=== PATIENT | female | born 1945 | race Caucasian/White ===

== ENCOUNTER 2016-09-23 01:43 | Inpatient (IN) | payer OTHER ==
[~2016-09-23] VITALS: Ht 162.6 cm; Wt 48.1 kg
[2016-09-23] MEDS ORDERED: ONDANSETRON 4 MG INJ IV STA (01:52)
[2016-09-23] MEDS ORDERED: morphine 2 MG INJ IV STA (01:52)
[2016-09-23] MEDS ORDERED: SOD CHLORIDE 0.9% 1,000 ML IV STA (01:52)
[2016-09-23] MEDS ORDERED: ALBUTEROL 0.083% (NEB) 2.5 MG/3 ML AMP HHN STA ×2 (01:53→07:03)
[2016-09-23] MEDS ORDERED: IPRATROPIUM (NEB) 0.5 MG/2.5 ML AMP HHN ONE (02:00)
[2016-09-23 02:11] LABS: ADD SCAN DIFF NO
[2016-09-23 02:13] LABS: BASOPHIL # 0.1 10^3/ul (0.0-0.1); BASOPHILS % 0.4 % (0.0-2.0); EOSINOPHILS # 0.1 10^3/ul (0.0-0.5); EOSINOPHILS % 0.4 % (0.0-7.0); HEMATOCRIT 39.2 % (37.0-47.0); HEMOGLOBIN 13.8 g/dl (12.0-16.0); LYMPHOCYTES % 12.5 % (15.0-51.0); MEAN CORPUSCULAR HEMOGLOBIN 32.3 pg (29.0-33.0); MEAN CORPUSCULAR HGB CONC 35.2 g/dl (32.0-37.0); MEAN CORPUSCULAR VOLUME 91.8 fl (82.0-101.0); MEAN PLATELET VOLUME 9.8 fl (7.4-10.4); MONOCYTE # 1.2 10^3/ul (0.3-0.9); MONOCYTES % 7.3 % (0.0-11.0); NEUTROPHIL # 12.6 10^3/ul (1.6-7.5); PLATELET COUNT 493 10^3/UL (140-415); RED BLOOD COUNT 4.27 10^6/ul (4.20-5.40); RED CELL DISTRIBUTION WIDTH 11.7 % (11.5-14.5); WHITE BLOOD COUNT 15.9 10^3/ul (4.8-10.8)
[2016-09-23 02:40] LABS: ALBUMIN/GLOBULIN RATIO 1.92; BILIRUBIN,INDIRECT 0.6 mg/dl (0-1.1); BILIRUBIN,TOTAL 0.6 mg/dl (0.2-1.3); CALCIUM 9.3 mg/dl (8.4-10.2); CREATININE 0.49 mg/dl (0.44-1.00); POTASSIUM 4.8 mmol/L (3.5-5.1); TOTAL PROTEIN 7.6 g/dl (6.1-8.1)
[2016-09-23 02:41] LABS: INR 0.89; PT RATIO 0.9
[2016-09-23 02:53] LABS: TROPONIN-I 0.744 ng/ml (0.00-0.12)
[2016-09-23] MEDS ORDERED: HEPARIN 25000 UNITS/250 ML 250 ML IV STA (03:21)
[2016-09-23] MEDS ORDERED: HEPARIN 1000 UNITS/ML 10 ML INJ IV STA (03:21)
[2016-09-23] MEDS ORDERED: CEFEPIME 1GM/50 ML (PMX) 50 ML IVPB ONE (03:30)
[2016-09-23] MEDS: LORAZEPAM 2 MG INJ IV ONE ×2 (03:53→05:20)
[2016-09-23] MEDS: ASPIRIN 81 MG TAB PO ONE ×2 (04:00→04:10)
--- NOTE | 2016-09-23 04:08 | ERA ---
ER Documentation Chief Complaint Date/Time DATE: 09/23/16 TIME: 03:58 Chief Complaint midepigastric pain radiates to back, sob, ?stemi by medics HPI 71-year-old female comes in respiratory distress on oxygen with paramedics. She was also complaining of epigastric abdominal pain that began earlier in the day. The pain does radiate to her back. She denies chest pain. She denies fever and chills. She states that she feels very jittery. Refuses to answer some questions. ROS All systems reviewed and are negative except as per history of present illness. Allergies Allergies: Coded Allergies: Penicillins (Verified Allergy, Unknown, 09/23/16) PMhx/Soc Medical and Surgical Hx: pt denies Surgical Hx History of Surgery: No Anesthesia Reaction: No Hx Neurological Disorder: Yes (anxiety) Hx Respiratory Disorders: Yes (copd, asthma) Hx Cardiac Disorders: Yes (htn) Hx Psychiatric Problems: No Hx Miscellaneous Medical Probl: Yes (thyroid) Hx Alcohol Use: No Hx Substance Use: No Smoking Status: Former smoker Physical Exam Vitals Vital Signs Date Time Temp Pulse Resp B/P Pulse Ox O2 Delivery O2 Flow Rate FiO2 09/23/16 05:50 101 18 132/73 100 BIPAP 09/23/16 05:30 118 24 115/91 100 BIPAP 09/23/16 05:15 100 BIPAP 09/23/16 05:00 131 24 143/119 86 Nasal Cannula 2.0 09/23/16 04:00 121 26 142/127 90 Nasal Cannula 2.0 09/23/16 03:30 123 20 141/84 100 BIPAP 09/23/16 02:27 114 17 125/97 100 BIPAP 09/23/16 02:07 97.8 111 21 161/100 99 09/23/16 01:50 112 100 70 Physical Exam Const: [] Moderate to severe respiratory distress. Appears very and, Head: Atraumatic Eyes: Normal Conjunctiva, EOMI, PRL ENT: Normal External Ears, Nose and Mouth. Neck: Full range of motion..~ No meningismus. Resp: Very mild bilateral anterior wheezing, tachypnea, accessory muscle use Cardio: Regular tachycardia, no murmurs Abd: Soft, mild to moderate epigastric tenderness without guarding or rebound , non distended. Normal bowel sounds Skin: No petechiae or rashes Back: No midline or flank tenderness Ext: No cyanosis, or edema Neur: Awake and alert and oriented 3, cranial nerves II through XII intact, no cerebellar deficits Psych: Appears anxious. Result Diagram: 09/23/16 0150 09/23/16 0150 Results 24 hrs Laboratory Tests Test 09/23/16 01:50 09/23/16 03:56 09/23/16 05:19 White Blood Count 15.910^3/ul Red Blood Count 4.2710^6/ul Hemoglobin 13.8g/dl Hematocrit 39.2% Mean Corpuscular Volume 91.8fl Mean Corpuscular Hemoglobin 32.3pg Mean Corpuscular Hemoglobin Concent 35.2g/dl Red Cell Distribution Width 11.7% Platelet Count 58525^3/UL Mean Platelet Volume 9.8fl Neutrophils % 79.0% Lymphocytes % 12.5% Monocytes % 7.3% Eosinophils % 0.4% Basophils % 0.4% Nucleated Red Blood Cells % 0.0/100WBC Neutrophils # 12.610^3/ul Lymphocytes # 2.010^3/ul Monocytes # 1.210^3/ul Eosinophils # 0.110^3/ul Basophils # 0.110^3/ul Nucleated Red Blood Cells # 0.010^3/ul Prothrombin Time 12.0Sec Prothrombin Time Ratio 0.9 INR International Normalized Ratio 0.89 Activated Partial Thromboplast Time 32.0Sec Sodium Level 117mmol/L Potassium Level 4.8mmol/L Chloride Level 86mmol/L Carbon Dioxide Level 22mmol/L Anion Gap 14 Blood Urea Nitrogen 9mg/dl Creatinine 0.49mg/dl Glucose Level 138mg/dl Lactic Acid Level 1.7mmol/L Calcium Level 9.3mg/dl Total Bilirubin 0.6mg/dl Direct Bilirubin 0.00mg/dl Indirect Bilirubin 0.6mg/dl Aspartate Amino Transf (AST/SGOT) 36IU/L Alanine Aminotransferase (ALT/SGPT) 32IU/L Alkaline Phosphatase 77IU/L Troponin I 0.744ng/ml B-Type Natriuretic Peptide 2460PG/ML Total Protein 7.6g/dl Albumin 5.0g/dl Globulin 2.60g/dl Albumin/Globulin Ratio 1.92 Lipase 36U/L Urine Color YELLOW Urine Clarity CLEAR Urine pH 6.0 Urine Specific [place] 1.013 Urine Ketones 2+mg/dL Urine Nitrite NEGATIVEmg/dL Urine Bilirubin NEGATIVEmg/dL Urine Urobilinogen NEGATIVEmg/dL Urine Leukocyte Esterase NEGATIVELeu/ul Urine Hemoglobin NEGATIVEmg/dL Urine Glucose NEGATIVEmg/dL Urine Total Protein NEGATIVEmg/dl Blood Gas Specimen Source Blood arterial Arterial Blood Date Drawn 09/23/2016 5:46:43 AM Arterial Blood pH (Temp corrected) 7.183 Arterial Blood pCO2 (Temp correct) 51.6mmhg Arterial Blood pO2 (Temp corrected) 214.7mmHG Arterial Blood HCO3 19.0mmol/L Arterial Blood Base Excess -9.6mmol/L Arterial Blood Oxygen Saturation 99.1mmHG Lencho Test ACCEPTAB Arterial Blood Gas Puncture Site Right Radial Arterial Blood Carboxyhemoglobin 0.1% Arterial Blood Methemoglobin 0.4% Blood Gas A-a O2 Differential 228.9mmHg Oxyhemoglobin Percent 98.6% Total Hemoglobin 14.5g/dl Blood Gas Temperature 37.0C Blood Gas Respiration Rate 14.0 Blood Gas Actual Respiration Rate 33 Blood Gas Modality MASK - BIPAP FiO2 70.0% Blood Gas IPAP/EPAP Ratio 16/5 Blood Gas Critical Value Read Back Maddie ATKINS Blood Gas Notified Whom BL Blood Gas Notified Time 09/23/2016 5:59:35 AM Current Medications Medications (Trade) Dose Ordered Sig/Florecita Route PRN Reason Start Time Stop Time Status Last Admin Dose Admin Sodium Chloride (NS) 1,000 ml @ 1,000 mls/hr Q1H STAT IV 09/23/16 01:52 09/23/16 02:51 DC 09/23/16 02:14 Morphine Sulfate (morphine) 2 mg ONCE STAT IV 09/23/16 01:52 09/23/16 01:53 DC Ondansetron HCl (Zofran Inj) 4 mg ONCE STAT IV 09/23/16 01:52 09/23/16 01:53 DC Albuterol (Proventil 0.083% (Neb)) 5 mg ONCE STAT HHN 09/23/16 01:53 09/23/16 01:55 DC 09/23/16 02:16 Ipratropium [place] (Atrovent 0.02% (Neb)) 0.5 mg ONCE ONCE HHN 09/23/16 02:00 09/23/16 02:01 DC 09/23/16 02:16 Lorazepam (Ativan) 1 mg ONCE ONCE IV 09/23/16 03:00 09/23/16 03:01 DC 09/23/16 03:53 Aspirin (Aspirin) 324 mg ONCE ONCE PO 09/23/16 03:30 09/23/16 03:31 DC Heparin Sodium (Porcine) 4000 unit 4,000 unit ONCE STAT IV 09/23/16 03:21 09/23/16 03:27 DC 09/23/16 04:56 Heparin Sodium (Porcine) 250 ml @ 0 mls/hr ONCE STAT IV 09/23/16 03:21 09/23/16 03:27 DC 09/23/16 04:59 Cefepime HCl 50 ml @ 100 mls/hr ONCE ONCE IVPB 09/23/16 03:30 09/23/16 03:59 DC 09/23/16 04:00 Sodium Chloride (NS) 500 ml @ 500 mls/hr Q1H ONCE IV 09/23/16 04:30 09/23/16 05:29 DC 09/23/16 04:12 IV Flush 10 ml 10 ml STK-MED ONCE .ROUTE 09/23/16 04:10 09/23/16 04:11 DC 09/23/16 04:40 Sodium Chloride 100 ml @ ud STK-MED ONCE .ROUTE 09/23/16 04:10 09/23/16 04:11 DC 09/23/16 04:40 Iohexol (Omnipaque) 100 ml @ ud STK-MED ONCE .ROUTE 09/23/16 04:10 09/23/16 04:11 DC 09/23/16 04:40 Levalbuterol (Xopenex Neb) 2.5 mg ONCE ONCE HHN 09/23/16 05:30 09/23/16 05:31 DC Procedures/MDM Respiratory distress and severe hyponatremia. Patient presented in respiratory distress. She was placed on a BiPAP but she only agreed to use during a breathing treatment. This did improve her condition. She remained persistently tachycardic and a CT injury was ordered to rule out PE. Patient was also given normal saline. Because of tachycardia and white count she was also treated with cefepime for potential sepsis. Given a total of 1.5 L of normal saline. I spoke with Mau Bolivar who agreed to accept the patient in transfer. Troponin was elevated at 0.74 and I started her on heparin and give her heparin bolus. She refused aspirin.. Morphine was ordered for pain but she refused it. EKG interpretation #1, sinus tachycardia rate of 125, normal axis, no ST or T- wave changes concerning for acute ischemia, normal intervals. Sinus tachycardia correctional therapy teacher interpretation: Persistent sinus tachycardia EKG #2 interpretation: Sinus tachycardia rate of 130, normal axis, no ST or T- wave changes concerning for acute ischemia, normal axis CT abdomen pelvis interpretation: I see no acute process, no obstruction, no abnormal fat stranding, no free air, no fractures CT chest interpretation: No pulmonary embolus or aortic dissection, emphysematous changes, I see no pneumothorax or acute fractures. Compression fractures of spine to persist Critical care time 44 minutes: This includes treatment of respiratory distress with noninvasive positive pressure ventilation, early antibiotic administration for possible sepsis, heparinization of patient with elevated troponin, careful hydration of patient with severe hyponatremia, chart review, multiple visits the patient's bedside to reassess status, discussion with patient and admitting doctor. This does not include any billable procedures. Departure Diagnosis: Primary Impression: SIRS (systemic inflammatory response syndrome) Additional Impressions: Respiratory distress COPD (chronic obstructive pulmonary disease) Hyponatremia Metabolic acidosis Respiratory acidosis Non-STEMI (non-ST elevated myocardial infarction) Condition: Serious PARAG MARTE DO Sep 23, 2016 04:08
[2016-09-23] MEDS ORDERED: IOHEXOL 100 ML ONE (04:10)
[2016-09-23] MEDS ORDERED: SOD CHLORIDE 0.9% 100 ML ONE (04:10)
--- NOTE | 2016-09-23 04:27 | RADRPT ---
PROCEDURE: CT of the abdomen and pelvis without contrast CLINICAL INDICATION: Abdominal Pain. TECHNIQUE: Spiral CT images through the abdomen and pelvis without the use of contrast. The admin istered radiation dose is CTDI 4.40 and DLP 229.11. One or more of the following dose reduction neftali hniques were used: automated exposure control, adjustment of the mA and/or kV according to patient s ize, or use of iterative reconstruction technique. COMPARISON: None FINDINGS: Lack of oral and intravenous contrast somewhat limits evaluation. Marked emphysematous changes of the lung bases with hyperinflation.. The study is limited by breathing motion artifact. Small probable cyst of the left lobe of the live r is seen. Aortic and coronary artery calcification is seen. No gross abnormality of the spleen, k idneys, or pancreas. Mild bilateral adrenal hypertrophy.. Fat-containing left inguinal hernia.. T he appendix is not definitely identified. A tiny amount of free fluid is seen in the pelvis. The b ladder, uterus, and adnexal structures are unremarkable in appearance. No gross small bowel obstruc tion or free air. No gross diverticulitis. No adenopathy is seen. Injection granuloma in the left gluteal region. There is mild degenerative change of the spine. IMPRESSION: Limited study due to lack of oral or intravenous contrast and breathing motion artifact. Nonvisuali zation of the appendix. No gross small bowel obstruction or free air. If symptoms persist, repeat study with intravenous and oral contrast would be suggested. Trace pelvic free fluid.. RPTAT: HLBE Physician Carolyn Date Time Electronically viewed and signed by Physician Carolyn on 09/23/2016 04:26 JOSEPH/
[2016-09-23] MEDS ORDERED: SOD CHLORIDE 0.9% 500 ML IV ONE (04:30)
[2016-09-23 04:33] LABS: ADD UMIC NO; UR ASCORBIC ACID 40 mg/dL (NEGATIVE); UR BILIRUBIN (Dip) NEGATIVE (NEGATIVE); UR BLOOD (Dip) NEGATIVE (NEGATIVE); UR CLARITY CLEAR (CLEAR); UR COLOR YELLOW (YELLOW); UR GLUCOSE (Dip) NEGATIVE (NEGATIVE); UR KETONES (Dip) 2+ mg/dL (NEGATIVE); UR LEUKOCYTE ESTERASE (Dip) NEGATIVE Leu/ul (NEGATIVE); UR NITRITE (Dip) NEGATIVE (NEGATIVE); UR SPECIFIC GRAVITY (Dip) 1.013 (1.003-1.030); UR TOTAL PROTEIN (Dip) NEGATIVE (NEGATIVE); UR UROBILINOGEN (Dip) NEGATIVE (NEGATIVE)
[2016-09-23] MEDS ORDERED: LEVALBUTEROL (NEB) 1.25 MG/0.5 ML AMP HHN ONE (05:30)
[2016-09-23 05:59] LABS: AADO2 Arterial 228.9 mmHg (7.0-24.0); Allen Test ACCEPTAB; Arterial Base Excess -9.6 mmol/L (-3.0-3); Arterial COHb 0.1 % (0.0-3.0); Arterial Fraction of Oxyhgb 98.6 % (93.0-99.0); Arterial MetHb 0.4 % (0.0-1.5); Arterial Total Hemglobin 14.5 g/dl (12.0-18.0); Blood Gas IEPAP 16/5; MODE MASK - BIPAP
--- NOTE | 2016-09-23 06:21 | RADRPT ---
PROCEDURE: CTA CHEST WITH CONTRAST CLINICAL INDICATION: 71-year-old female with shortness of breath. TECHNIQUE: The study was performed utilizing a [employer] VCT 64-slice CT scanner. Direct axi al sections were obtained from the thoracic inlet through the chest to the upper abdomen with a bolu s injection of 90 cc of Isovue-300 nonionic contrast material. Sagittal, coronal and maximal intensi ty projections re-formations were obtained. One or more of the following dose reduction techniques w ere utilized: automated exposure control, adjustment of the mA and/or kV according to patient's size or use of iterative reconstruction technique. The images were reviewed on a PACS workstation. CTD/ vol = 59.3 mGy; Total Exam DLP = 155.6 mGy-cm. COMPARISON: CT abdomen/pelvis September 23, 2016 at 02:59 a.m. FINDINGS: The aorta is calcified but without aneurysmal dilatation or dissection. Coronary artery calcificatio ns are present. There are small lymph nodes seen within the mediastinum which are not pathologic by size criteria. The central pulmonary arteries are without evidence for filling defect to suggest pu lmonary embolus or thrombus. There is marked centrilobular emphysematous changes throughout the lung s. There is mild right basilar subsegmental atelectasis. There is minimal scarring within the left lung base. There is no definite evidence for consolidation. There is no evidence for a pneumothora x. Bilateral calcified breast implants are noted. Mild degenerative changes are present within the spine. There is an old compression fracture of the T7 vertebral body with approximately 30% loss of height. There is an old compression fracture the superior T9 vertebral body with approximately 20% loss of height. IMPRESSION: 1. No CTA evidence for thoracic aortic aneurysm/dissection or central pulmonary embolus. 2. Coronary artery calcifications. 3. Marked centrilobular emphysematous changes. 4. Mild right basilar subsegmental atelectasis. 5. Calcified breast implants. 6. Degenerative changes within the spine with old T7 (30%) and superior T9 (20% compression fractur es. .Arias Masters MD, MD Date Time Electronically viewed and signed by .Arias Masters MD, MD on 09/23/2016 06:20 .Kieran/
[2016-09-23 08:27] LABS: AADO2 Arterial 106.5 mmHg (7.0-24.0); Allen Test ACCEPTAB; Arterial Base Excess -8.5 mmol/L (-3.0-3); Arterial COHb 0.3 % (0.0-3.0); Arterial Fraction of Oxyhgb 97.5 % (93.0-99.0); Arterial HCO3 18.3 mmol/L (22.0-26.0); Arterial MetHb 0.3 % (0.0-1.5); Arterial Total Hemglobin 14.4 g/dl (12.0-18.0); Blood Gas IEPAP 16/5; Blood Gas PS 11; MODE MASK - BIPAP
[2016-09-23] MEDS ORDERED: ACETAMINOPHEN 325 MG TAB PO PRN ×2 (09:00→11:30)
[2016-09-23] MEDS ORDERED: ONDANSETRON 4 MG INJ IV PRN (09:00)
[2016-09-23] MEDS ORDERED: TIOT18CA INHALATION (11:22)
[2016-09-23] MEDS ORDERED: LISI10TA2 PO (11:23)
[2016-09-23] MEDS ORDERED: ALBU18HF INHALATION (11:23)
[2016-09-23] MEDS ORDERED: LORA-441 PO (11:24)
[2016-09-23] MEDS ORDERED: NACL 0.9% 3 ML SYG IV SCH (11:30)
[2016-09-23] MEDS ORDERED: morphine 2 MG INJ IV PRN (11:30)
[2016-09-23] MEDS ORDERED: HYDROCODONE/APAP (5/325) TAB PO PRN (11:30)
[2016-09-23] MEDS ORDERED: LEVALBUTEROL (NEB) 0.63 MG/3 ML AMP HHN PRN (12:00)
[2016-09-23] MEDS ORDERED: hydrALAzine 20 MG INJ IV PRN (12:00)
[2016-09-23] MEDS ORDERED: ASPIRIN (EC) 81 MG TAB PO SCH (12:00)
[2016-09-23] MEDS ORDERED: ENOXAPARIN 30 MG/0.3 ML SYG SC SCH (12:00)
[2016-09-23] MEDS ORDERED: SOD CHLORIDE 0.9% 1,000 ML IV SCH (12:30)
[2016-09-23 12:48] LABS: ALBUMIN 4.6 g/dl (3.3-4.9); ALBUMIN/GLOBULIN RATIO 2.09; BILIRUBIN,INDIRECT 0.3 mg/dl (0-1.1); BILIRUBIN,TOTAL 0.3 mg/dl (0.2-1.3); CALCIUM 8.4 mg/dl (8.4-10.2); CREATININE 0.54 mg/dl (0.44-1.00); POTASSIUM 4.7 mmol/L (3.5-5.1); TOTAL PROTEIN 6.8 g/dl (6.1-8.1)
[2016-09-23 12:56] LABS: CHOL/HDL RATIO 1.5 RATIO
[2016-09-23 13:01] LABS: CK-MB 13.3 ng/ml (0.0-2.4)
[2016-09-23 13:07] LABS: TROPONIN-I 0.742 ng/ml (0.00-0.12)
[2016-09-23 14:07] LABS: MAGNESIUM 1.6 mg/dl (1.7-2.5); PHOSPHORUS 3.7 mg/dl (2.5-4.9)
[2016-09-23] MEDS: LEVALBUTEROL (NEB) 0.63 MG/3 ML AMP HHN SCH (14:34)
--- NOTE | 2016-09-23 14:36 | HP ---
DATE OF ADMISSION: 09/23/2016 TIME OF EVALUATION: 12:30 p.m. REASON FOR ADMISSION: Dyspnea with epigastric pain radiating to the back. CONSULTANTS: 1. Dr. Roland Dhaliwal, Cardiology 2. Dr. Devon Mitchell, Nephrology 3. 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 The patient verbalized that she started having epigastric abdominal pain since 09/22/2016. The patient also had multiple episodes of nausea and dry heaves. The patient denied any vomiting. The patient also verbalized that she felt her abdomen was bloated. The patient also was having progressive worsening of dyspnea. The patient verbalized that that heat wave over the last week made her respiratory status worse. The patient does not use any home oxygen. The patient continues use her inhaled bronchodilators at home. The patient denied any cough, fevers, or chills. The patient denied any chest pain. The patient was complaining of dizziness and headache. The patient verbalized that she had similar symptoms when her sodium was low previously. When questioned further about why she has low sodium, she was unable to give an answer to it. The patient usually follows up with the physicians at [facility]. The patient denied any chest pain. The patient denied any diaphoresis. She denied any diarrhea. The patient denied any dysuria or hematuria. The patient denied any melena or hematochezia. The patient has not had any colonoscopy in the recent past. The patient denied any history of any malignancies. In the emergency room, the patient was noticed to have significant hyponatremia with a sodium of 117. The patient also had a troponin level of 0.744. The patient was noticed to have lactic acidosis with lactic acid as high as 2.7 in the emergency room. The patient also had a significant respiratory distress with CO2 retention. Consequently, the patient was maintained on BiPAP therapy with improvement in the patient's symptoms. The patient was noticed to have combined respiratory and metabolic acidosis. Status post BiPAP therapy, the patient had no more evidence of CO2 retention. The patient underwent a CT angiogram of the chest that was negative for any central pulmonary embolism or aortic aneurysm or dissection. The patient underwent a CT scan of the abdomen and pelvis that was a limited study because of lack of intravenous or oral contrast as well as breathing motion artifact. However, there was no gross bowel obstruction or free air. The patient's troponins were trending higher up. The patient was started on a heparin drip. The patient also received a single dose of IV cefepime along with oral aspirin. PAST MEDICAL HISTORY: COPD, anxiety, and hypertension. PAST SURGICAL HISTORY: Denies. HOME MEDICATIONS: 1. Ventolin HFA 2 puffs inhaled q.4 hours p.r.n. dyspnea. 2. Spiriva 18 mcg capsule 2 puffs inhalation daily. 3. Lisinopril 10 mg p.o. daily. 4. Ativan 0.5 mg p.o. at bedtime p.r.n. anxiety. ALLERGIES: NO KNOWN DRUG ALLERGIES. SOCIAL HISTORY: The patient lives at home with her son. The patient quit smoking approximately 12 years ago. The patient denied any use of illicit drugs or alcohol. REVIEW OF SYSTEMS: A 12-point review of systems was made and the review of systems was negative other than what is mentioned in history of present illness. PHYSICAL EXAMINATION: VITAL SIGNS: Temperature 98.1, pulse rate 99, respiratory rate 20, blood pressure 106/78, oxygen saturation 99% on low flow O2. GENERAL: This is a thin, frail-looking female lying in bed in mild to moderate respiratory distress with oxygen via nasal cannula on. HEENT: Head normocephalic and atraumatic. Eyes: Anicteric sclerae. Conjunctivae clear. ENT: Nasal septum is midline. Oral mucosa is dry. NECK: Supple. No JVD noticed. RESPIRATORY: Bilaterally diminished breath sounds. Poor air entry bilaterally. Use of accessory muscles for respiration. CARDIAC: Regular rate and rhythm. S1, S2 heard. GASTROINTESTINAL: Abdomen soft, scaphoid. Nontender. Bowel sounds hypoactive in all 4 quadrants. GENITOURINARY: Deferred. EXTREMITIES: No cyanosis, no clubbing, no edema. Peripheral pulses palpable. NEUROLOGIC: The patient is awake, alert, and oriented. Moves all 4 extremities. No focal neurologic deficits. LABORATORY AND DIAGNOSTIC DATA: WBC 15.9, hemoglobin 13.8, hematocrit 39.2, platelet count 493. Sodium 117, potassium 4.8, chloride 86, carbon dioxide 22, anion gap 14, BUN 9, creatinine 0.49, glucose 138, calcium 9.3. Troponin I 0.744. Urinalysis, urine ketones 2+, urine nitrate negative, leukocyte esterase negative, urine total protein negative. PT 12.0, INR 0.898, PTT 32.0. CT angiogram of the chest: No CT evidence for thoracic aortic aneurysm/ dissection or pulmonary embolism. Coronary artery calcifications. Markedly centrilobular emphysematous changes. Mild right bibasilar subsegmental atelectasis. Calcified breast implants. Degenerative changes within the spine , but old T7 and superior T9 compression fractures. CT scan of the abdomen and pelvis. Limited study due to lack of oral/ intravenous contrast and breathing motion artifact. Nonvisualization of the appendix. No gross small bowel obstruction or free air. If symptoms persist, repeat study with intravenous and oral contrast would be suggested. IMPRESSION: This is a 71-year-old female with a past medical history of essential hypertension, COPD, and anxiety disorder who came to the emergency room with multiple complaints who was found to have evidence of elevated troponins, hypochloremic acidosis, significant hyponatremia, and respiratory distress who will be admitted here for further treatment and evaluation. ASSESSMENT AND PLAN: 1. Acute on chronic respiratory failure, hypoxic and hypercapnic. The patient is status post BiPAP therapy. The patient will be continued on supplemental oxygen. The patient will be continued on inhaled bronchodilators. A pulmonology consult will be obtained. 2. Non-ST elevation myocardial infarction. Troponins are elevated. Etiology unclear. The patient will be ruled out for any underlying acute coronary syndrome. A cardiology consult will be obtained. A 2-D echocardiogram will be obtained to evaluate the left ventricular ejection fraction to evaluate for any wall motion abnormalities. 3. Hyponatremia. Etiology unclear. The patient denied any history of kidney disease. The patient did not have any recent surgical interventions. The patient denied any use of any diuretics. The patient's sodium will be corrected gradually. A nephrology consult will be obtained. Urine and serum osmolality and urine sodium level will be obtained. 4. Hypochloremic acidosis. Etiology unclear. The patient will be adequately hydrated. 5. Essential hypertension. The patient will be started on antihypertensives. 6. Anxiety disorder. The patient will be continued on p.r.n. benzodiazepines. Plan. The patient will be admitted to inpatient telemetry floor. The patient will be started on a clear liquid diet. The patient will be started on DVT prophylaxis. The patient is already on therapeutic anticoagulation for underlying NSTEMI. The patient will remain a FULL CODE. Activities will be with assist. The rest of the patient's management will be based on the clinical course, the results of diagnostic studies, and inputs from consultants. Based on the patient's clinical presentation, she most probably requires at least 2 midnights' stay for further management and evaluation of her clinical presentation. The case and management of this patient was fully discussed with Dr. Rodriguez. LIN RODRIGUEZ MD, AM/CAROLINE Conf#: [id number] DID#: [id number] MTDD
[2016-09-23 14:38] LABS: THYROID STIMULATING HORMONE 9.52 MIU/L (0.465-4.680)
[2016-09-23] MEDS ORDERED: LORAZEPAM 2 MG INJ IV STA (14:53)
[2016-09-23] MEDS ORDERED: LORAZEPAM 2 MG INJ ONE (15:02)
--- NOTE | 2016-09-23 15:48 | RADRPT ---
Echocardiogram Report Patient Name: JEFFRY CLAROS M Gender: Female Date: 1945 Study Date: 23-Sep-2016 Silk Screen Operator: DOROTEO Location: E Ref. Physician: LIN LINDSEY Quality: Adequate Procedures: Transthoracic echocardiogram examination. Indications: Check LV EF. 2D/M Mode Doppler Measurement Value Normal Range Measurement Value Normal Range LA Dimen 2D 2.9 2.3 - 4.0 cm AV Peak [place] 0.9 m/sec AV Peak PG 3.2 mmHg LVOT Peak [place] 0.6 m/sec MV E Peak [place] 0.8 m/sec MV A Peak [place] 0.5 m/sec MV E/A 1.7 MV Decel Time 115 msec MV Decel [place] 7 MV E/A 1.7 TR Peak [place] 3.4 m/sec TR Peak PG 46.4 mmHg PV Peak [place] 0.7 m/sec PV Peak PG 2.0 mmHg RVSP 49.4 mmHg Findings Left Ventricle: Normal left ventricular cavity size. Moderate left ventricular systolic dysfunction. There is a large area of LV apical akinesis. Tissue Doppler/Mitral Doppler indices are most probably consistent with pseudonormalization with mildly elevated left atrial pressure (Stage II diastolic dysfunction), patient could/would not Valsalva. Normal left ventricular wall thickness. The left ventricular ejection fraction is visually estimated at 35 - 40 %. Right Ventricle: Normal right ventricular size. The RV apex appears to be akinetic, best appreciated in the subcostal images. Left Atrium: The left atrium is normal in size and appearance. Right Atrium: The right atrium is normal in size and appearance. Atrial Septum: Normal atrial septum. Mitral Valve: Anterior mitral valve leaflet appear mildly thickened. Trace to mild mitral regurgitation. Aortic Valve: Normal appearance and function of the aortic valve. No hemodynamically significant aortic stenosis by Doppler. No aortic regurgitation. Tricuspid Valve: Normal appearance of the tricuspid valve. The estimated Peak RVSP is 49 mmHg. There is moderate tricuspid regurgitation. Pulmonic Valve: Normal pulmonic valve appearance and function with trivial (physiologic) regurgitation. No evidence of pulmonic regurgitation. Pericardium: Normal pericardium with no significant pericardial effusion. No pleural effusion noted. Aorta: Normal aortic root as imaged from apical views. IVC: Normal inferior vena cava appearance. Pulmonary Artery: Normal pulmonary artery size. Conclusions 1.The left ventricle is normal in size with moderately reduced systolic function. The entire apex is hypokinetic. 2.Estimated left ventricular ejection fraction of 35-40%. 3.Grade 2 diastolic dysfunction. 4.Pulmonary hypertension with estimated RVSP of 49 mmHg. Electronically Signed By: Roland Dhaliwal 23-Sep-2016 15:47:55 -0700 Patient Name: JEFFRY CLAROS M Study Date: 23-Sep-2016 [id number]
[2016-09-23 15:50] LABS: ADD UMIC YES; UR ASCORBIC ACID 20 mg/dL (NEGATIVE); UR BILIRUBIN (Dip) NEGATIVE (NEGATIVE); UR BLOOD (Dip) NEGATIVE (NEGATIVE); UR CLARITY CLEAR (CLEAR); UR COLOR YELLOW (YELLOW); UR GLUCOSE (Dip) NEGATIVE (NEGATIVE); UR KETONES (Dip) 1+ mg/dL (NEGATIVE); UR LEUKOCYTE ESTERASE (Dip) NEGATIVE Leu/ul (NEGATIVE); UR MUCUS FEW /HPF (NONE SEEN); UR NITRITE (Dip) NEGATIVE (NEGATIVE); UR RBC 1 /HPF (0-5); UR SPECIFIC GRAVITY (Dip) 1.056 (1.003-1.030); UR TOTAL PROTEIN (Dip) 1+ mg/dl (NEGATIVE); UR UROBILINOGEN (Dip) NEGATIVE (NEGATIVE)
[2016-09-23 16:06] LABS: INR 1.03; PROTIME 13.5 Sec (12.2-14.2); PT RATIO 1.1
[2016-09-23 16:10] LABS: BARBITURATES Negative (NEGATIVE); BENZODIAZEPINES Negative (NEGATIVE); CANNABINOIDS Negative (NEGATIVE); COCAINE Negative (NEGATIVE); OPIATES Negative (NEGATIVE)
[2016-09-23 16:23] LABS: CALCIUM 8.2 mg/dl (8.4-10.2); CREATININE 0.55 mg/dl (0.44-1.00); POTASSIUM 4.6 mmol/L (3.5-5.1)
[2016-09-23 17:11] LABS: THROMBIN TIME > 100.0 SEC (13.8-19.1)
[2016-09-23 17:20] LABS: PLATELET COUNT 386 10^3/UL (140-415)
--- NOTE | 2016-09-23 17:55 | CONS ---
DATE OF ADMISSION: 09/23/2016 DATE OF CONSULTATION: 09/23/2016 TYPE OF CONSULTATION: Nephrology. REASON FOR CONSULTATION: Hyponatremia. ____ Nurse practitioner, Erich. HISTORY OF PRESENT ILLNESS: This is a 71-year-old female with a past medical history of anxiety dis order, history of COPD, asthma, hypertension, history of hypothyroidism, previous history of hyponat remia, who presents to [facility] with mid epigastric pain with radiation to the b ack. The patient upon arrival to the emergency room was complaining about abdominal pain. The vinny ent had laboratory data drawn, which showed sodium of 117, a troponin 0.744. Patient had a CT angio in the emergency room which showed no evidence of PE dissection, significant centrilobular emphysem atous changes, bibasilar atelectasis and compression fractures of the back. The patient also had a CT of the abdomen which showed no acute findings. In the emergency room, the patient was given IV h ydration, given Lovenox for NSTEMI, and heparin drip. In terms of the patient's hyponatremia, per patient, she has been told in the past that she has had low sodium levels, hyponatremia. She does not know what underlying etiology is. Denies taking any salt tablets. Denies any lethargy, confusion, denies any seizure activity. The patient does admit to drinking copious amounts of fluids and having minimal oral food intake. PAST MEDICAL HISTORY: As stated above, history of COPD, history of asthma, history of anxiety disorder, history of hypertension, history of hypothyroidism, history of hyponatr emia. ALLERGIES: THE PATIENT IS ALLERGIC TO PENICILLIN. FAMILY HISTORY: Noncontributory. SOCIAL HISTORY: Does not drink, smoke or do drugs. MEDICATIONS: The patient's medications have been reviewed. REVIEW OF SYSTEMS: A 14-point review of systems was conducted. Pertinent positives stated in HPI, otherwise negative. PHYSICAL EXAMINATION: VITAL SIGNS: Blood pressure is 106/78, respirations 20, pulse 90, temperature 98.1. HEENT: Head is normocephalic. Pupils are reactive to light. NECK: Supple. HEART: Regular rate. LUNGS: Show diminished breath sounds at the base. ABDOMEN: Soft, nontender to palpation. No rebound or guarding. EXTREMITIES: Negative for clubbing, cyanosis, no edema. DERMATOLOGIC: No rashes. MUSCULOSKELETAL: No joint effusions. NEUROLOGIC: No focal deficits. ASSESSMENT AND PLAN: This is a 71-year-old female who presents with: 1. Hyponatremia, unclear if this is acute versus subacute versus chronic. The differential is broa d including possible polydipsia, decreased oral osmolar intake, volume depletion, possible underlyin g syndrome of inappropriate antidiuretic hormone. The patient was given IV fluids and showed a repe at sodium level improved from 117 to 120 mEq per liter. The patient's urinary output has been kurt nal. Plan at this point, is to do a full workup. We will check a urine sodium, urine osmolarity, s radha osmolarity, TSH level, uric acid level, a.m. cortisol level. We will monitor serial sodium lev els closely with the goal of correction of no more than 4 to 6 mEq in a 24-hour period. Will contin ue to monitor neurologic status closely. Will limit free water intake at this time. 2. unclear if there is underlying infection. The patient has elevated white count. The patient's workup is ongoing, remains on antibiotic therapy. Monitor closely. 3. Non-ST elevation myocardial infarction. Continue medical management. 4. Chronic obstructive pulmonary disease exacerbation. Continue current treatment plan. Continue nebulizers and supplemental oxygen. 5. Acute respiratory failure secondary to chronic obstructive pulmonary disease exacerbation. Cont inue current medical management. 6. Hypertension. Blood pressure currently controlled. Continue to monitor. Thank you ____ hospital course. Dictated By: BRIAN OQUENDO/CAROLINE Conf#: [id number] DID#: [id number]
[2016-09-23 18:00] VITALS: TEMP 97.4
--- NOTE | 2016-09-23 18:03 | CONS ---
Date/Time of Note Date/Time of Note DATE: 09/23/16 TIME: 17:51 Assessment/Plan Assessment/Plan Chief Complaint/Hosp Course Assessment: NSTEMI - likely type 2 Cardiomyopathy - LVEF 35-40% with apical hypokinesis, ischemic vs Takotsubo Acute on chronic hypoxic and hypercarbic respiratory failure - on BiPAP Chronic obstructive pulmonary disease exacerbation Systemic inflammatory response syndrome - rule out infection Hypertension Hyponatremia Recommendations: -echocardiogram showed LVEF 35-40% with apical hypokinesis, grade 2 diastolic dysfunction, RVSP 49 mmHg -continue aspirin 325mg daily -continue lisinopril 10mg daily, IV hydralazine PRN -hold off on beta-franci due to chronic obstructive pulmonary disease exacerbation -recommend coronary angiography - will need to discuss with case preparer and liner regarding transfer to [facility] as she is a member Problems: Consultation Date/Type/Reason Admit Date/Time Type of Consultation: Cardiology Reason for Consultation elevated troponin Hx of Present Illness The patient is a 71 year-old female who presents with abdominal pain and shortness of breath. She is noted to have hypoxic and hypercarbic respiratory failure, and has been placed on BiPAP. Due to her critical condition, she is unable to provide any additional history. She is noted to have a mildly elevated troponin up to 0.835. Additionally, she is noted to have a leukocytosis, lactic acidosis, and hyponatremia. Additional Comments Unable to obtain review of systems due to patient's critical condition. Past Medical History Hypertension Chronic obstructive pulmonary disease Anxiety Past Surgical History Past Surgical Hx: no surgical history Family History Significant Family History: no pertinent family hx Social History Alcohol Use: none Smoking Status: Former smoker Drug Use: none Exam/Review of Systems Vital Signs Vitals Vital Signs Date Time Temp Pulse Resp B/P Pulse Ox O2 Delivery O2 Flow Rate FiO2 09/23/16 15:24 108 22 148/83 98 09/23/16 15:06 40 09/23/16 13:23 Nasal Cannula 09/23/16 08:29 98.1 09/23/16 05:00 2.0 Exam Constitutional: alert, distress Psych: No nl mood/affect, No no complaints Head: atraumatic, normocephalic Eyes: nl conjunctiva, nl lids ENMT: nl external ears & nose, nl nasal mucosa & septum Neck: non-tender, supple Respiratory: diminished breath sounds, wheezing Cardiovascular: regular rate and rhythm, No murmurs/extra sounds Gastrointestinal: non-tender, soft Musculoskeletal: nl extremities to inspection Extremities: No clubbing, No cyanosis, No edema Neurological: No nl mental status, No nl speech Skin: nl turgor, No rash or lesions Results Result Diagram: 09/23/16 1530 09/23/16 1420 Results 24 hrs Laboratory Tests Test 09/23/16 01:50 09/23/16 03:56 09/23/16 05:15 09/23/16 05:19 White Blood Count 15.9 H Red Blood Count 4.27 Hemoglobin 13.8 Hematocrit 39.2 Mean Corpuscular Volume 91.8 Mean Corpuscular Hemoglobin 32.3 Mean Corpuscular Hemoglobin Concent 35.2 Red Cell Distribution Width 11.7 Platelet Count 493 H Mean Platelet Volume 9.8 Neutrophils % 79.0 H Lymphocytes % 12.5 L Monocytes % 7.3 Eosinophils % 0.4 Basophils % 0.4 Nucleated Red Blood Cells % 0.0 Neutrophils # 12.6 H Lymphocytes # 2.0 Monocytes # 1.2 H Eosinophils # 0.1 Basophils # 0.1 Nucleated Red Blood Cells # 0.0 Prothrombin Time 12.0 L Prothrombin Time Ratio 0.9 INR International Normalized Ratio 0.89 Activated Partial Thromboplast Time 32.0 Sodium Level 117 *L Potassium Level 4.8 Chloride Level 86 L Carbon Dioxide Level 22 Anion Gap 14 Blood Urea Nitrogen 9 Creatinine 0.49 Glucose Level 138 Lactic Acid Level 1.7 2.4 H Calcium Level 9.3 Total Bilirubin 0.6 Direct Bilirubin 0.00 Indirect Bilirubin 0.6 Aspartate Amino Transf (AST/SGOT) 36 Alanine Aminotransferase (ALT/SGPT) 32 Alkaline Phosphatase 77 Troponin I 0.744 *H B-Type Natriuretic Peptide 2460 H Total Protein 7.6 Albumin 5.0 H Globulin 2.60 Albumin/Globulin Ratio 1.92 Lipase 36 Urine Color YELLOW Urine Clarity CLEAR Urine pH 6.0 Urine Specific [place] 1.013 Urine Ketones 2+ H Urine Nitrite NEGATIVE Urine Bilirubin NEGATIVE Urine Urobilinogen NEGATIVE Urine Leukocyte Esterase NEGATIVE Urine Hemoglobin NEGATIVE Urine Glucose NEGATIVE Urine Total Protein NEGATIVE Blood Gas Specimen Source Blood arterial Arterial Blood Date Drawn 09/23/2016 5:46:43 AM Arterial Blood pH (Temp corrected) 7.183 *L Arterial Blood pCO2 (Temp correct) 51.6 H Arterial Blood pO2 (Temp corrected) 214.7 H Arterial Blood HCO3 19.0 L Arterial Blood Base Excess -9.6 L Arterial Blood Oxygen Saturation 99.1 Lencho Test ACCEPTAB Arterial Blood Gas Puncture Site Right Radial Arterial Blood Carboxyhemoglobin 0.1 Arterial Blood Methemoglobin 0.4 Blood Gas A-a O2 Differential 228.9 H Oxyhemoglobin Percent 98.6 Total Hemoglobin 14.5 Blood Gas Temperature 37.0 Blood Gas Respiration Rate 14.0 Blood Gas Actual Respiration Rate 33 Blood Gas Modality MASK - BIPAP FiO2 70.0 Blood Gas IPAP/EPAP Ratio 16 Blood Gas Critical Value Read Back Maddie ATKINS Blood Gas Notified Whom BL Blood Gas Notified Time 09/23/2016 5:59:35 AM Test 09/23/16 07:30 09/23/16 07:33 09/23/16 11:23 09/23/16 12:16 Lactic Acid Level 2.7 H Troponin I 0.835 *H 0.742 *H Blood Gas Specimen Source Blood arterial Arterial Blood Date Drawn 09/23/2016 8:22:05 AM Arterial Blood pH (Temp corrected) 7.255 *L Arterial Blood pCO2 (Temp correct) 42.2 Arterial Blood pO2 (Temp corrected) 130.2 H Arterial Blood HCO3 18.3 L Arterial Blood Base Excess -8.5 L Arterial Blood Oxygen Saturation 98.1 Lencho Test ACCEPTAB Arterial Blood Gas Puncture Site Left Radial Arterial Blood Carboxyhemoglobin 0.3 Arterial Blood Methemoglobin 0.3 Blood Gas A-a O2 Differential 106.5 H Oxyhemoglobin Percent 97.5 Total Hemoglobin 14.4 Blood Gas Temperature 37.0 Blood Gas Respiration Rate 22.0 Blood Gas Actual Respiration Rate 24 Blood Gas Modality MASK - BIPAP FiO2 40.0 Blood Gas Pressure Support 11 Blood Gas IPAP/EPAP Ratio 16 Blood Gas Critical Value Read Back MARY ANN Igelsias Blood Gas Notified Whom MDA Blood Gas Notified Time 09/23/2016 8:26:54 AM Free Thyroxine 0.92 Sodium Level 120 L Potassium Level 4.7 Chloride Level 89 L Carbon Dioxide Level 23 Anion Gap 13 Blood Urea Nitrogen 10 Creatinine 0.54 Glucose Level 101 Hemoglobin A1c 5.5 Calcium Level 8.4 Phosphorus Level 3.7 Magnesium Level 1.6 L Total Bilirubin 0.3 Direct Bilirubin 0.00 Indirect Bilirubin 0.3 Aspartate Amino Transf (AST/SGOT) 45 Alanine Aminotransferase (ALT/SGPT) 38 Alkaline Phosphatase 61 Creatine Kinase 208 H Creatine Kinase Index 6.4 Creatinine Kinase MB (Mass) 13.30 H Total Protein 6.8 Albumin 4.6 Globulin 2.20 Albumin/Globulin Ratio 2.09 Triglycerides Level 66 Cholesterol Level 209 H LDL Cholesterol, Calculated 60 HDL Cholesterol 136 H Cholesterol/HDL Ratio 1.5 Thyroid Stimulating Hormone (TSH) 9.520 H Test 09/23/16 14:20 09/23/16 15:15 09/23/16 15:30 Sodium Level 119 *L Potassium Level 4.6 Chloride Level 90 L Carbon Dioxide Level 22 Anion Gap 12 Blood Urea Nitrogen 10 Creatinine 0.55 Glucose Level 144 # Osmolality 254 L Lactic Acid Level 2.8 H Uric Acid 3.2 Calcium Level 8.2 L Urine Color YELLOW Urine Clarity CLEAR Urine pH 6.0 Urine Specific [place] 1.056 H Urine Ketones 1+ H Urine Nitrite NEGATIVE Urine Bilirubin NEGATIVE Urine Urobilinogen NEGATIVE Urine Leukocyte Esterase NEGATIVE Urine Microscopic RBC 1 Urine Microscopic WBC 1 Urine Mucus FEW A Urine Hemoglobin NEGATIVE Urine Osmolality 605 Urine Random Creatinine 55.00 Urine Random Sodium 20 L Urine Glucose NEGATIVE Urine Total Protein 18.0 H Urine Opiates Screen Negative Urine Barbiturates Negative Urine Amphetamines Screen Negative Urine Benzodiazepines Screen Negative Urine Cocaine Screen Negative Urine Cannabinoids Negative Platelet Count 386 Prothrombin Time 13.5 Prothrombin Time Ratio 1.1 INR International Normalized Ratio 1.03 Activated Partial Thromboplast Time 81.0 *H Thrombin Time > 100.0 H Medications Medications Current Medications Acetaminophen (Tylenol Tab) 650 mg Q6H PRN PO PAIN LEVEL 1-3 OR FEVER; Start at 11:30 Acetaminophen/ Hydrocodone Bitart ([place] (5/325)) 1 tab Q6H PRN PO PAIN LEVEL 4 -6; Start 09/23/16 at 11:30 Morphine Sulfate (morphine) 2 mg Q4H PRN IV PAIN LEVEL 7-10; Start 09/23/16 at 11:30 Famotidine (Pepcid) 20 mg Q12 PO ; Start 09/23/16 at 21:00 Hydralazine HCl (Apresoline) 10 mg Q6H PRN IV SBP>160; Start 09/23/16 at 12:00 Aspirin 81 mg 81 mg DAILY PO ; Start 09/23/16 at 12:00 Sodium Chloride (NS) 1,000 ml @ 100 mls/hr Q10H IV Last administered on t 12:37; Admin Dose 100 MLS/HR; Start 09/23/16 at 12:30 Lisinopril (Zestril) 10 mg DAILY PO ; Start 09/24/16 at 09:00 Lorazepam (Ativan) 0.5 mg HS PRN PO NEEDED; Start 09/23/16 at 13:30 JOSE JOSE MD Sep 23, 2016 18:02
[2016-09-23 19:39] LABS: CK-MB 14.8 ng/ml (0.0-2.4)
[2016-09-23 19:40] LABS: TROPONIN-I 0.728 ng/ml (0.00-0.12)
[2016-09-23 20:59] VITALS: PULSE 112
[2016-09-23 21:18] VITALS: BP 116/63; RESP 18
[2016-09-23 21:30] VITALS: Ht 162.6 cm; Wt 48.1 kg
[2016-09-23 22:32] LABS: CREATININE 0.43 mg/dl (0.44-1.00); POTASSIUM 4.6 mmol/L (3.5-5.1)
[2016-09-24] VITALS (12 sets, daily range): BP systolic 98–123; BP diastolic 57–64; PULSE 80–107; RESP 17–19
[2016-09-24] MEDS: LORAZEPAM 0.5 MG TAB PO PRN ×2 (00:44→20:35)
[2016-09-24] MEDS: FAMOTIDINE 20 MG TAB PO SCH ×3 (00:44→20:34)
[2016-09-24] MEDS ORDERED: ALBUTEROL/IPRATROPIUM (NEB) 3 ML AMP HHN PRN (02:00)
[2016-09-24] MEDS: SOD CHLORIDE 0.9% 1,000 ML IV SCH ×2 (02:25→14:10)
[2016-09-24] MEDS: HEPARIN 25000 UNITS/250 ML 250 ML IV SCH ×2 (04:50→14:05)
[2016-09-24] MEDS ORDERED: HEPARIN 1000 UNITS/ML 10 ML INJ IV ONE (05:00)
[2016-09-24] MEDS ORDERED: HEPARIN 1000 UNITS/ML 10 ML INJ IV PRN (05:00)
[2016-09-24 08:04] LABS: ADD SCAN DIFF NO
[2016-09-24 08:08] LABS: BASOPHILS % 0.2 % (0.0-2.0); EOSINOPHILS # 0.1 10^3/ul (0.0-0.5); EOSINOPHILS % 0.7 % (0.0-7.0); HEMATOCRIT 30.1 % (37.0-47.0); HEMOGLOBIN 10.3 g/dl (12.0-16.0); LYMPHOCYTES # 1.2 10^3/ul (0.8-2.9); MEAN CORPUSCULAR HEMOGLOBIN 32.2 pg (29.0-33.0); MEAN CORPUSCULAR HGB CONC 34.2 g/dl (32.0-37.0); MEAN CORPUSCULAR VOLUME 94.1 fl (82.0-101.0); MEAN PLATELET VOLUME 10.1 fl (7.4-10.4); MONOCYTE # 1.3 10^3/ul (0.3-0.9); MONOCYTES % 12.8 % (0.0-11.0); NEUTROPHIL # 7.7 10^3/ul (1.6-7.5); NEUTROPHILS % 73.8 % (39.0-77.0); PLATELET COUNT 286 10^3/UL (140-415); RED CELL DISTRIBUTION WIDTH 12.1 % (11.5-14.5); WHITE BLOOD COUNT 10.4 10^3/ul (4.8-10.8)
[2016-09-24 08:42] LABS: ALBUMIN 3.3 g/dl (3.3-4.9); ALBUMIN/GLOBULIN RATIO 1.73; BILIRUBIN,INDIRECT 0.1 mg/dl (0-1.1); BILIRUBIN,TOTAL 0.1 mg/dl (0.2-1.3); CALCIUM 7.7 mg/dl (8.4-10.2); CREATININE 0.49 mg/dl (0.44-1.00); POTASSIUM 4.4 mmol/L (3.5-5.1); TOTAL PROTEIN 5.2 g/dl (6.1-8.1)
[2016-09-24] MEDS ORDERED: LISINOPRIL 10 MG TAB PO SCH (09:00)
[2016-09-24] MEDS ORDERED: ASPIRIN (EC) 325 MG TAB PO SCH (09:00)
[2016-09-24 10:30] LABS: MAGNESIUM 1.7 mg/dl (1.7-2.5); PHOSPHORUS 2.6 mg/dl (2.5-4.9)
[2016-09-24 10:45] LABS: CK-MB 8.54 ng/ml (0.0-2.4); TROPONIN-I 0.389 ng/ml (0.00-0.12)
--- NOTE | 2016-09-24 13:14 | PN ---
DATE: 09/24/2016 SUBJECTIVE: The patient is stable. No acute events overnight. No fevers, chills, nausea/vomiting, shortness of breath. OBJECTIVE: VITAL SIGNS: Blood pressure 123/63, respiration 18, pulse 109, temperature 98.8. I's and O's patie nt had 530 in; 800 out. HEENT: Head is normocephalic. NECK: Supple. HEART: Regular rate. LUNGS: Show diminished breath sounds at base. ABDOMEN: Soft, nontender to palpation. No rebound or guarding. EXTREMITIES: Negative for clubbing, cyanosis, edema. DERMATOLOGIC: No rashes. MUSCULOSKELETAL: No joint effusions. NEUROLOGIC: No change in exam. MEDICATIONS: The patient's medications have been reviewed. LABORATORY DATA: Shows sodium 122, potassium 4.4, chloride 95, BUN 8, creatinine 0.49. Urinalysis shows FENa less than 1%, a urine osmolarity of 605. Urine sodium of 20. ASSESSMENT AND PLAN: 1. Hyponatremia, etiology is unclear if this is acute versus subacute versus chronic. Underlying c ause of the hyponatremia appears to be volume depletion. The patient has a low urinary sodium, FENa of less than 1%, high urine osmolarity. The patient's sodium levels have slowly been improving wit h IV hydration. Sodium levels have appropriately corrected 6 mEq in 24 hours from 117 to 123 mEq. The patient has no neurological signs or symptoms. No headaches, no confusion, no lethargy, no seiz ure output. Plan at this point is to repeat the urine sodium osmolarity levels. Will continue to e ncourage high osmolar diet and monitor I's and O's closely to prevent correction of no more than 18 mEq in a 48-hour period. Will continue to monitor serial sodium levels. Please note the patient's cortisol level and uric acid levels were within normal limits. 2. Non-ST elevation myocardial infarction. Continue medical management. 3. History of chronic obstructive pulmonary disease. Continue current medical management and nebul ized therapy. 4. Acute respiratory failure secondary to COPD exacerbation. The patient improving. Continue curr ent treatment plan. 5. Hypertension. Continue current blood pressure regimen. Dictated By: BRIAN OQUENDO/CAROLINE Conf#: [id number] DID#: [id number]
--- NOTE | 2016-09-24 13:17 | CONS ---
Date/Time of Note Date/Time of Note DATE: 09/24/16 TIME: 13:13 Assessment/Plan Assessment/Plan Additional Assessment/Plan CT chest was reviewed from yesterday which is negative for PE severe emphysematous changes are present throughout both lung land. Next 2D echocardiogram is showing left ventricular apical akinesis. Assessment recommendations; 1. Patient admitted with COPD exacerbation with some interval improvement. 2. Positive troponins with chest pain. Patient awaiting transfer to [facility] and may need coronary angiography. 3. History of anxiety. 4. History of hypertension. 5. Hyponatremia, likely SIADH. There has been interval improvement in serum sodium since yesterday. Continue current treatment. Patient currently maintained on IV heparin via protocol. Consultation Date/Type/Reason Admit Date/Time Date of Consultation: Sep 24, 2016 Type of Consultation: Pulmonary Reason for Consultation Pulmonary consultation requested for evaluation of COPD. History of present illness; patient is a 70-year-old white lady who came into the emergency room yesterday with a several days history of increasing shortness of breath and dyspnea on exertion. She also has been having scant cough without any sputum production. Patient has been having nonspecific chest pain which is quite were increased by deep breathing and certain movements. Upon further evaluation patient was diagnosed with severe exacerbation and also has a positive troponin. Patient had been started on IV heparin via protocol patient currently awaiting transfer to [facility] for further management of positive troponins. Patient is feeling somewhat better since admission denies any further chest pain. Has any nausea vomiting fever chills. Past medical history; 1. History of COPD. 2. Hypertension. 3. Anxiety. 4. History of bilateral breast implants. 5. No known coronary artery disease. Medications; reviewed. Allergies; are to penicillin and Xopenex. Social history; patient quit smoking 12 years ago was a heavy smoker. Most of alcohol or drug abuse. Family history; she is single, she has 5 children. 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 Review of systems; denies any headache, visual changes. Any postnasal drip. Denies any further chest pain. Does complain of dyspnea on exertion which according to her varies a lot depending upon the weather. Complain of chronic dyspnea on exertion. Has lost significant weight recently. Denies any diarrhea , melena, hematochezia constipation. Denies any urinary symptoms. Denies any orthopnea. Denies any new skin changes. General exam; elderly woman, awake alert currently in no distress. Appears anxious. Psychological: No nl mood/affect, No no complaints Past Surgical History Past Surgical Hx: no surgical history Social History Alcohol Use: none Smoking Status: Former smoker Drug Use: none Exam/Review of Systems Vital Signs Vitals Vital Signs Date Time Temp Pulse Resp B/P Pulse Ox O2 Delivery O2 Flow Rate FiO2 09/24/16 12:09 80 09/24/16 11:43 98.6 19 122/64 98 09/24/16 02:04 Nasal Cannula 4.0 09/23/16 15:06 40 Intake and Output 09/23/16 09/23/16 09/24/16 15:00 23:00 07:00 Intake Total 530 ml Output Total 800 ml Balance -270 ml Exam HEENT exam; supple neck, patient is edentulous and wears dentures. Has bilateral intraocular lens implants. No lymphadenopathy. No thyromegaly. No neck masses. Chest exam; diminished breath sounds throughout. No added sound. S1-S2 audible , no murmurs. Regular rhythm. Abdomen examination; soft, nontender. No organomegaly. Bowel sounds audible. Extremity exam; no peripheral edema. Pulses 2+ bilaterally. No clubbing. PATIENT COORDINATOR FRONT DESK examination; no focal deficit. Results Result Diagram: 09/24/16 0655 09/24/16 0655 Results 24 hrs Laboratory Tests Test 09/23/16 14:20 09/23/16 15:15 09/23/16 15:30 09/23/16 18:00 Sodium Level 119 *L Potassium Level 4.6 Chloride Level 90 L Carbon Dioxide Level 22 Anion Gap 12 Blood Urea Nitrogen 10 Creatinine 0.55 Glucose Level 144 # Osmolality 254 L Lactic Acid Level 2.8 H 2.6 H Uric Acid 3.2 Calcium Level 8.2 L Urine Color YELLOW Urine Clarity CLEAR Urine pH 6.0 Urine Specific [place] 1.056 H Urine Ketones 1+ H Urine Nitrite NEGATIVE Urine Bilirubin NEGATIVE Urine Urobilinogen NEGATIVE Urine Leukocyte Esterase NEGATIVE Urine Microscopic RBC 1 Urine Microscopic WBC 1 Urine Mucus FEW A Urine Hemoglobin NEGATIVE Urine Osmolality 605 Urine Random Creatinine 55.00 Urine Random Sodium 20 L Urine Glucose NEGATIVE Urine Total Protein 18.0 H Urine Opiates Screen Negative Urine Barbiturates Negative Urine Amphetamines Screen Negative Urine Benzodiazepines Screen Negative Urine Cocaine Screen Negative Urine Cannabinoids Negative Platelet Count 386 Prothrombin Time 13.5 Prothrombin Time Ratio 1.1 INR International Normalized Ratio 1.03 Activated Partial Thromboplast Time 81.0 *H Thrombin Time > 100.0 H Creatine Kinase 246 H Creatine Kinase Index 6.0 Creatinine Kinase MB (Mass) 14.80 H Troponin I 0.728 *H Test 09/23/16 21:58 09/24/16 02:16 09/24/16 06:55 09/24/16 11:15 Sodium Level 118 *L 123 L Potassium Level 4.6 4.4 Chloride Level 92 L 95 L Carbon Dioxide Level 22 29 Anion Gap 9 3 L Blood Urea Nitrogen 10 8 Creatinine 0.43 L 0.49 Glucose Level 109 78 Calcium Level 8.0 L 7.7 L Activated Partial Thromboplast Time 34.5 152.2 *H White Blood Count 10.4 # Red Blood Count 3.20 #L Hemoglobin 10.3 #L Hematocrit 30.1 #L Mean Corpuscular Volume 94.1 Mean Corpuscular Hemoglobin 32.2 Mean Corpuscular Hemoglobin Concent 34.2 Red Cell Distribution Width 12.1 Platelet Count 286 # Mean Platelet Volume 10.1 Neutrophils % 73.8 Lymphocytes % 12.0 L Monocytes % 12.8 H Eosinophils % 0.7 Basophils % 0.2 Nucleated Red Blood Cells % 0.0 Neutrophils # 7.7 H Lymphocytes # 1.2 Monocytes # 1.3 H Eosinophils # 0.1 Basophils # 0.0 Nucleated Red Blood Cells # 0.0 Lactic Acid Level 0.8 Phosphorus Level 2.6 Magnesium Level 1.7 Total Bilirubin 0.1 L Direct Bilirubin 0.00 Indirect Bilirubin 0.1 Aspartate Amino Transf (AST/SGOT) 38 Alanine Aminotransferase (ALT/SGPT) 33 Alkaline Phosphatase 42 Creatine Kinase 190 Creatine Kinase Index 4.5 Creatinine Kinase MB (Mass) 8.54 H Troponin I 0.389 *H Total Protein 5.2 #L Albumin 3.3 # Globulin 1.90 Albumin/Globulin Ratio 1.73 Random Cortisol 11.9 Medications Medications Current Medications Acetaminophen (Tylenol Tab) 650 mg Q6H PRN PO PAIN LEVEL 1-3 OR FEVER Last administered on 09/24/16t 07:44; Admin Dose 650 MG; Start 09/23/16 at 11:30 Acetaminophen/ Hydrocodone Bitart ([place] (5/325)) 1 tab Q6H PRN PO PAIN LEVEL 4 -6; Start 09/23/16 at 11:30 Morphine Sulfate (morphine) 2 mg Q4H PRN IV PAIN LEVEL 7-10; Start 09/23/16 at 11:30 Famotidine (Pepcid) 20 mg Q12 PO Last administered on 09/24/16 09:46; Admin Dose 20 MG; Start 09/23/16 at 21:00 Hydralazine HCl (Apresoline) 10 mg Q6H PRN IV SBP>160; Start 09/23/16 at 12:00 Lisinopril (Zestril) 10 mg DAILY PO Last administered on 09/24/16 09:50; Admin Dose 10 MG; Start 09/24/16 at 09:00 Lorazepam (Ativan) 0.5 mg HS PRN PO NEEDED Last administered on 09/24/16 00 :44; Admin Dose 0.5 MG; Start 09/23/16 at 13:30 Aspirin 325 mg 325 mg DAILY PO Last administered on 09/24/16 09:46; Admin Dose 325 MG; Start 09/24/16 at 09:00 Sodium Chloride (NS) 1,000 ml @ 50 mls/hr Q20H IV Last administered on 02:25; Admin Dose 100 MLS/HR; Start 09/24/16 at 02:00 Heparin Sodium (Porcine) (Heparin (1000 Units/ml)) 2,900 unit PRN PRN IV PENDING LAB VALUE Last administered on 09/24/16 04:57; Admin Dose 2,900 UNIT; Start 09/24/16 at 05:00 Levothyroxine Sodium (Synthroid) 88 mcg DAILY@06 PO ; Start 09/25/16 at 06:00 Atorvastatin Calcium (Lipitor) 20 mg HS PO ; Start 09/24/16 at 21:00 ERROL CASAREZ Sep 24, 2016 13:17
[2016-09-24] MEDS: LEVALBUTEROL (NEB) 0.63 MG/3 ML AMP HHN SCH ×2 (13:38→19:11)
--- NOTE | 2016-09-24 14:35 | PN ---
Date/Time of Note Date/Time of Note DATE: 09/24/16 TIME: 14:33 Assessment/Plan VTE Prophylaxis VTE Prophylaxis Intervention: heparin Lines/Catheters IV Catheter Type (from Nrs): Peripheral IV Urinary Cath still in place: Yes Reason Cath still needed: urinary retention, other (indicate) (strict I/O ) Assessment/Plan Assessment/Plan 1. acute hypoxic resp distress due to COPD and CHF Exacerbation 2. acute CHF exacerbation, acute on chronic, systolic and diastolic, ECHO showed EF 35-40% with stage II DD 3.acute NSTEMI 4. Hyponatremia 5.Hypertension 6. hyperlipidemia Plan: lasix 20mg IV BID, d/c IVF Solu medrol 20mg IV BID with breathing RX levalbuterola BP monitoring Tele s/p Nephrology and Cardiology consult, medical management Heparin gtt for NSTEMI will transfer to [facility] when bed available Subjective 24 Hr Interval Summary Free Text/Dictation Pt has mccann catheter, C/o SOB, + wheezing/crackles, Exam/Review of Systems Vital Signs Vitals Vital Signs Date Time Temp Pulse Resp B/P Pulse Ox O2 Delivery O2 Flow Rate FiO2 09/24/16 13:40 97 20 97 Nasal Cannula 4.0 09/24/16 11:43 98.6 122/64 09/23/16 15:06 40 Intake and Output 09/23/16 09/23/16 09/24/16 15:00 23:00 07:00 Intake Total 530 ml Output Total 800 ml Balance -270 ml Exam HEENT: Head is normocephalic. NECK: Supple. HEART: Regular rate. LUNGS: Show diminished breath sounds at base. ABDOMEN: Soft, nontender to palpation. No rebound or guarding. EXTREMITIES: Negative for clubbing, cyanosis, edema. DERMATOLOGIC: No rashes. MUSCULOSKELETAL: No joint effusions. NEUROLOGIC: No change in exam. Results Result Diagram: 09/24/16 0655 09/24/16 0655 Results 24 hrs Laboratory Tests Test 09/23/16 15:15 09/23/16 15:30 09/23/16 18:00 09/23/16 21:58 Urine Color YELLOW Urine Clarity CLEAR Urine pH 6.0 Urine Specific Mobile 1.056 H Urine Ketones 1+ H Urine Nitrite NEGATIVE Urine Bilirubin NEGATIVE Urine Urobilinogen NEGATIVE Urine Leukocyte Esterase NEGATIVE Urine Microscopic RBC 1 Urine Microscopic WBC 1 Urine Mucus FEW A Urine Hemoglobin NEGATIVE Urine Osmolality 605 Urine Random Creatinine 55.00 Urine Random Sodium 20 L Urine Glucose NEGATIVE Urine Total Protein 18.0 H Urine Opiates Screen Negative Urine Barbiturates Negative Urine Amphetamines Screen Negative Urine Benzodiazepines Screen Negative Urine Cocaine Screen Negative Urine Cannabinoids Negative Platelet Count 386 Prothrombin Time 13.5 Prothrombin Time Ratio 1.1 INR International Normalized Ratio 1.03 Activated Partial Thromboplast Time 81.0 *H Thrombin Time > 100.0 H Lactic Acid Level 2.6 H Creatine Kinase 246 H Creatine Kinase Index 6.0 Creatinine Kinase MB (Mass) 14.80 H Troponin I 0.728 *H Sodium Level 118 *L Potassium Level 4.6 Chloride Level 92 L Carbon Dioxide Level 22 Anion Gap 9 Blood Urea Nitrogen 10 Creatinine 0.43 L Glucose Level 109 Calcium Level 8.0 L Test 09/24/16 02:16 09/24/16 06:55 09/24/16 11:15 Activated Partial Thromboplast Time 34.5 152.2 *H White Blood Count 10.4 # Red Blood Count 3.20 #L Hemoglobin 10.3 #L Hematocrit 30.1 #L Mean Corpuscular Volume 94.1 Mean Corpuscular Hemoglobin 32.2 Mean Corpuscular Hemoglobin Concent 34.2 Red Cell Distribution Width 12.1 Platelet Count 286 # Mean Platelet Volume 10.1 Neutrophils % 73.8 Lymphocytes % 12.0 L Monocytes % 12.8 H Eosinophils % 0.7 Basophils % 0.2 Nucleated Red Blood Cells % 0.0 Neutrophils # 7.7 H Lymphocytes # 1.2 Monocytes # 1.3 H Eosinophils # 0.1 Basophils # 0.0 Nucleated Red Blood Cells # 0.0 Sodium Level 123 L Potassium Level 4.4 Chloride Level 95 L Carbon Dioxide Level 29 Anion Gap 3 L Blood Urea Nitrogen 8 Creatinine 0.49 Glucose Level 78 Lactic Acid Level 0.8 Calcium Level 7.7 L Phosphorus Level 2.6 Magnesium Level 1.7 Total Bilirubin 0.1 L Direct Bilirubin 0.00 Indirect Bilirubin 0.1 Aspartate Amino Transf (AST/SGOT) 38 Alanine Aminotransferase (ALT/SGPT) 33 Alkaline Phosphatase 42 Creatine Kinase 190 Creatine Kinase Index 4.5 Creatinine Kinase MB (Mass) 8.54 H Troponin I 0.389 *H Total Protein 5.2 #L Albumin 3.3 # Globulin 1.90 Albumin/Globulin Ratio 1.73 Random Cortisol 11.9 Medications Medications Current Medications Acetaminophen (Tylenol Tab) 650 mg Q6H PRN PO PAIN LEVEL 1-3 OR FEVER Last administered on 09/24/16 07:44; Admin Dose 650 MG; Start 09/23/16 at 11:30 Acetaminophen/ Hydrocodone Bitart ([place] (5/325)) 1 tab Q6H PRN PO PAIN LEVEL 4 -6; Start 09/23/16 at 11:30 Morphine Sulfate (morphine) 2 mg Q4H PRN IV PAIN LEVEL 7-10; Start 09/23/16 at 11:30 Famotidine (Pepcid) 20 mg Q12 PO Last administered on 09/24/16 09:46; Admin Dose 20 MG; Start 09/23/16 at 21:00 Hydralazine HCl (Apresoline) 10 mg Q6H PRN IV SBP>160; Start 09/23/16 at 12:00 Lisinopril (Zestril) 10 mg DAILY PO Last administered on 09/24/16 09:50; Admin Dose 10 MG; Start 09/24/16 at 09:00 Lorazepam (Ativan) 0.5 mg HS PRN PO NEEDED Last administered on 09/24/16 00 :44; Admin Dose 0.5 MG; Start 09/23/16 at 13:30 Aspirin 325 mg 325 mg DAILY PO Last administered on 09/24/16 09:46; Admin Dose 325 MG; Start 09/24/16 at 09:00 Sodium Chloride (NS) 1,000 ml @ 50 mls/hr Q20H IV Last administered on 14:10; Admin Dose 50 MLS/HR; Start 09/24/16 at 02:00 Heparin Sodium (Porcine) (Heparin (1000 Units/ml)) 2,900 unit PRN PRN IV PENDING LAB VALUE Last administered on 09/24/16 04:57; Admin Dose 2,900 UNIT; Start 09/24/16 at 05:00 Levothyroxine Sodium (Synthroid) 88 mcg DAILY@06 PO ; Start 09/25/16 at 06:00 Atorvastatin Calcium (Lipitor) 20 mg HS PO ; Start 09/24/16 at 21:00 ALEX WARREN MD Sep 24, 2016 14:35
--- NOTE | 2016-09-24 14:42 | PDOCDIS ---
Discharge Instructions CONDITION Patient Condition: Good HOME CARE INSTRUCTIONS: Special Diet: Cardiac low fat, low salt diet ACTIVITY: Activity Restrictions: Slowly Increase Activity Rest between Activity Avoid heavy lifting Avoid Heavy Housework FOLLOW UP/APPOINTMENTS Follow-up Plan follow up with her own PMD at [facility], she will need to be seen by potato sorter and House Wrecker over there. ALEX WARREN MD Sep 24, 2016 14:42
[2016-09-24] MEDS ORDERED: LORAZEPAM 0.5 MG TAB PO SCH (16:00)
--- NOTE | 2016-09-24 17:03 | CONS ---
Date/Time of Note Date/Time of Note DATE: 09/24/16 TIME: 17:00 Assessment/Plan Assessment/Plan Chief Complaint/Hosp Course Assessment: NSTEMI - likely type 2 Cardiomyopathy - LVEF 35-40% with apical hypokinesis, ischemic vs Takotsub[place] Acute on chronic hypoxic and hypercarbic respiratory failure - improved and off BiPAP Chronic obstructive pulmonary disease exacerbation Systemic inflammatory response syndrome - rule out infection Hypertension Hyponatremia Recommendations: -echocardiogram showed LVEF 35-40% with apical hypokinesis, grade 2 diastolic dysfunction, RVSP 49 mmHg -continue heparin drip -continue aspirin 325mg daily -continue atorvastatin -continue lisinopril 10mg daily, IV hydralazine PRN -hold off on beta-franci due to chronic obstructive pulmonary disease exacerbation -recommend coronary angiography - pending transfer to [place] as she is a member Problems: Consultation Date/Type/Reason Admit Date/Time Sep 23, 2016 at 08:32 Initial Consult Date 09/24/16 Type of Consultation: Cardiology 24 HR Interval Summary Free Text/Dictation Respiratory status improved. Off BiPAP and on nasal canula. Denies chest pain. Detailed Summary Additional Comments 14 point review of systems without changes. Exam/Review of Systems Vital Signs Vitals Vital Signs Date Time Temp Pulse Resp B/P Pulse Ox O2 Delivery O2 Flow Rate FiO2 09/24/16 16:04 107 09/24/16 15:49 98.8 19 109/64 99 09/24/16 13:40 Nasal Cannula 4.0 09/23/16 15:06 40 Intake and Output 09/23/16 09/23/16 09/24/16 15:00 23:00 07:00 Intake Total 530 ml Output Total 800 ml Balance -270 ml Exam Constitutional: alert, distress Psych: No nl mood/affect, No no complaints Head: atraumatic, normocephalic Eyes: nl conjunctiva, nl lids ENMT: nl external ears & nose, nl nasal mucosa & septum Neck: non-tender, supple Respiratory: diminished breath sounds, wheezing Cardiovascular: regular rate and rhythm, No murmurs/extra sounds Gastrointestinal: non-tender, soft Musculoskeletal: nl extremities to inspection Extremities: No clubbing, No cyanosis, No edema Neurological: nl mental status, nl speech Skin: nl turgor, No rash or lesions Results Result Diagram: 09/24/16 0655 09/24/16 1536 Results 24 hrs Laboratory Tests Test 09/23/16 18:00 09/23/16 21:58 09/24/16 02:16 09/24/16 06:55 Lactic Acid Level 2.6 H 0.8 Creatine Kinase 246 H 190 Creatine Kinase Index 6.0 4.5 Creatinine Kinase MB (Mass) 14.80 H 8.54 H Troponin I 0.728 *H 0.389 *H Sodium Level 118 *L 123 L Potassium Level 4.6 4.4 Chloride Level 92 L 95 L Carbon Dioxide Level 22 29 Anion Gap 9 3 L Blood Urea Nitrogen 10 8 Creatinine 0.43 L 0.49 Glucose Level 109 78 Calcium Level 8.0 L 7.7 L Activated Partial Thromboplast Time 34.5 White Blood Count 10.4 # Red Blood Count 3.20 #L Hemoglobin 10.3 #L Hematocrit 30.1 #L Mean Corpuscular Volume 94.1 Mean Corpuscular Hemoglobin 32.2 Mean Corpuscular Hemoglobin Concent 34.2 Red Cell Distribution Width 12.1 Platelet Count 286 # Mean Platelet Volume 10.1 Neutrophils % 73.8 Lymphocytes % 12.0 L Monocytes % 12.8 H Eosinophils % 0.7 Basophils % 0.2 Nucleated Red Blood Cells % 0.0 Neutrophils # 7.7 H Lymphocytes # 1.2 Monocytes # 1.3 H Eosinophils # 0.1 Basophils # 0.0 Nucleated Red Blood Cells # 0.0 Phosphorus Level 2.6 Magnesium Level 1.7 Total Bilirubin 0.1 L Direct Bilirubin 0.00 Indirect Bilirubin 0.1 Aspartate Amino Transf (AST/SGOT) 38 Alanine Aminotransferase (ALT/SGPT) 33 Alkaline Phosphatase 42 Total Protein 5.2 #L Albumin 3.3 # Globulin 1.90 Albumin/Globulin Ratio 1.73 Random Cortisol 11.9 Test 09/24/16 11:15 09/24/16 15:36 Activated Partial Thromboplast Time 152.2 *H Sodium Level 124 L Medications Medications Current Medications Acetaminophen (Tylenol Tab) 650 mg Q6H PRN PO PAIN LEVEL 1-3 OR FEVER Last administered on 09/24/16t 07:44; Admin Dose 650 MG; Start 09/23/16 at 11:30 Acetaminophen/ Hydrocodone Bitart ([place] (5/325)) 1 tab Q6H PRN PO PAIN LEVEL 4 -6; Start 09/23/16 at 11:30 Morphine Sulfate (morphine) 2 mg Q4H PRN IV PAIN LEVEL 7-10; Start 09/23/16 at 11:30 Famotidine (Pepcid) 20 mg Q12 PO Last administered on 09/24/16 09:46; Admin Dose 20 MG; Start 09/23/16 at 21:00 Hydralazine HCl (Apresoline) 10 mg Q6H PRN IV SBP>160; Start 09/23/16 at 12:00 Lisinopril (Zestril) 10 mg DAILY PO Last administered on 09/24/16 09:50; Admin Dose 10 MG; Start 09/24/16 at 09:00 Lorazepam (Ativan) 0.5 mg HS PRN PO NEEDED Last administered on 09/24/16 00 :44; Admin Dose 0.5 MG; Start 09/23/16 at 13:30 Aspirin (Ecotrin) 325 mg DAILY PO Last administered on 09/24/16 09:46; Admin Dose 325 MG; Start 09/24/16 at 09:00 Heparin Sodium (Porcine) (Heparin (1000 Units/ml)) 2,900 unit PRN PRN IV PENDING LAB VALUE Last administered on 09/24/16 04:57; Admin Dose 2,900 UNIT; Start 09/24/16 at 05:00 Levothyroxine Sodium (Synthroid) 88 mcg DAILY@06 PO ; Start 09/25/16 at 06:00 Atorvastatin Calcium (Lipitor) 20 mg HS PO ; Start 09/24/16 at 21:00 Methylprednisolone Sodium Succinate (Solu-Medrol) 20 mg Q12 IV ; Start 09/24/16 at 21:00 Lorazepam (Ativan) 0.5 mg BID PO Last administered on 09/24/16 15:47; Admin Dose 0.5 MG; Start 09/24/16 at 16:00 JOSE JOSE MD Sep 24, 2016 17:02
[2016-09-24] MEDS ORDERED: FUROSEMIDE 20 MG INJ IV SCH (18:00)
[2016-09-24] MEDS ORDERED: METHYLPREDNISOLONE 40 MG INJ IV SCH (21:00)
[2016-09-24] MEDS ORDERED: ATORVASTATIN 20 MG TAB PO SCH (21:00)
--- NOTE | 2016-09-25 00:09 | DS ---
DATE OF ADMISSION: 09/23/2016 DATE OF DISCHARGE: 09/24/2016 FINAL DISCHARGE DIAGNOSES: 1. Systemic inflammatory response syndrome secondary to acute hypoxic respiratory distress. 2. Acute hypoxic respiratory distress due to chronic obstructive pulmonary disease and congestive h eart failure exacerbation. 3. Acute congestive heart failure exacerbation, acute on chronic, systolic and diastolic. Echocard iogram showed ejection fraction 35% to 40% with stage II diastolic dysfunction. 4. Acute non-ST elevation myocardial infarction. 5. Acute chronic obstructive pulmonary disease exacerbation. 6. Hyponatremia. 7. Hypertension. 8. Hyperlipidemia. CONSULTATION DONE DURING THIS HOSPITALIZATION: Cardiology consultation. HOSPITAL COURSE: This is a 71-year-old female with a past medical history of hypertension, hyperlip idemia, history of possible CHF, but the patient is not aware about that. She is a previous smoker and history of COPD. She presented with severe shortness of breath, tachycardia and was hypoxic. S he got admitted for systemic inflammatory response syndrome secondary to acute hypoxic respiratory d istress. She had multifactorial reasons causing acute hypoxic respiratory failure. She was noted t o have acute CHF exacerbation, acute on chronic, systolic and diastolic. She also had acute COPD ex acerbation. The patient had echocardiogram done which revealed ejection fraction 35% to 40% with st age II diastolic dysfunction. She was started on IV Lasix diuresis for acute CHF exacerbation, and she was also given IV Solu-Medrol for her acute COPD exacerbation. The patient slowly, gradually im proved and remained stable on the telemetry floor, but due to her insurance capitation of [facility], she gets transferred to the [facility] for further cardiology evaluation and furt her care. Here at the [facility], she was evaluated by cardiology consultation an d recommended to have cardiac cath once the patient is euvolemic and able to lie flat. DISPOSITION: Transfer to the [facility]. DISCHARGE CONDITION: Stable, improved compared to admission. DISCHARGE ACTIVITIES: As tolerated. Slowly resume to the normal baseline activity. DISCHARGE DIET: Cardiac, low-fat, low-sodium diet. DISCHARGE MEDICATIONS: As per medical reconciliation. DISCHARGE FOLLOWUP INSTRUCTIONS: The patient is to follow up with the physician at the [facility]. The patient is to follow up with the soldering machine operator helper and the sort supervisor ____ the [facility] over there. She has been explained about her discharge plan, followup instructions. Her raymond beckham was at bedside. She understood and verbalized understanding. Total time spent on this patient's discharge summary took more than 60 minutes including explaining to the patient, her daughter at bedside and communicating with nursing staff on the floor. Dictated By: ALEX WARREN MD, KP/CAROLINE Conf#: [id number] DID#: [id number]
[2016-09-25] MEDS ORDERED: LEVOTHYROXINE 88 MCG TAB PO SCH (06:00)
[2016-09-25 15:22] LABS: MICROALBUMIN 8.3 mg/dL
== END 2016-09-24 22:49 | disposition short-term general hospital (02) | DRG 280 ==
LOC: E/R 01:43 → MS4 08:32
PROVIDERS: ADMIT Internal Medicine; ATTEND Internal Medicine
PROC: 5A09457 Assistance with Respiratory Ventilation, 24-96 Consecutive Hours, Continuous Positive Airway Pressure (ICD-10-PCS; principal; 2016-09-23)
DX: I21.4 Non-ST elevation (NSTEMI) myocardial infarction (principal); J96.21 Acute and chronic respiratory failure with hypoxia; I50.43 Acute on chronic combined systolic (congestive) and diastolic (congestive) heart failure; E87.2 Acidosis; R65.10 Systemic inflammatory response syndrome (SIRS) of non-infectious origin without acute organ dysfunction; I42.9 Cardiomyopathy, unspecified; E87.1 Hypo-osmolality and hyponatremia; E86.0 Dehydration; J96.22 Acute and chronic respiratory failure with hypercapnia; J44.1 Chronic obstructive pulmonary disease with (acute) exacerbation; I10 Essential (primary) hypertension; F41.9 Anxiety disorder, unspecified; E78.5 Hyperlipidemia, unspecified; Z87.891 Personal history of nicotine dependence
CPT/HCPCS: 36415; 36600; 71275; 74176; 80048; 80053; 80061; 80307; 81001; 81003; 82043; 82533; 82550; 82553; 82803; 83036; 83605; 83690; 83735; 83880; 83930; 83935; 84100; 84155; 84295; 84300; 84439; 84443; 84484; 84560; 85025; 85049; 85610; 85670; 85730; 87040; 93005; 93306; 94640; 94644; 94660; 94664; 96374; 96375; 96376; J1940; J0692; J1644; J2060; J2270; J2405; J2920; J7030; J7040; Q9967

== ENCOUNTER 2018-12-12 05:07 | Emergency (ER) | payer OTHER ==
[~2018-12-12] VITALS: Ht 167.6 cm; Wt 65.9 kg
[2018-12-12 05:07] VITALS: Ht 167.6 cm; Wt 65.9 kg
[~2018-12-12 05:07] MED LIST: ALBU18HF INHALATION; LISI10TA2 PO; LORA-441 PO; TIOT18CA INHALATION
[2018-12-12] MEDS ORDERED: EPINEPHrine 0.1 MG/ML SYG ONE (07:00)
== END 2018-12-12 10:30 | disposition expired ==
LOC: E/R 05:07
DX: I46.9 Cardiac arrest, cause unspecified (principal); I25.10 Atherosclerotic heart disease of native coronary artery without angina pectoris; J44.9 Chronic obstructive pulmonary disease, unspecified; I25.2 Old myocardial infarction; I10 Essential (primary) hypertension; Z87.891 Personal history of nicotine dependence
CPT/HCPCS: 31500; 92950; 99285; J0171